=== PATIENT | male | born 1930 | race Caucasian/White ===

== ENCOUNTER → 2018-05-19 | Day surgery (SDC) | payer MEDICARE, OTHER ==
[~2018-05-19] VITALS: Ht 177.8 cm; Wt 105.0 kg
[2018-05-19] VITALS (9 sets, daily range): BP systolic 100–133; BP diastolic 59–75; PULSE 67–71; TEMP 97.8–98.4
[~2018-05-19] MED LIST: BYDUREON P2 MG/0.65; BYDUREON PEN2 MG SQ; CEPHALEXIN500 M1 PO; COUMADIN 2MG2 MG/TAB PO; COUMADIN 3MG3 MG/TAB PO; COUMADIN4 MG PO; CRESTOR20 MG PO; FLOMAX 0.40.4 MG/CAP PO; GLUCOPHAGE500 MG/TAB PO; GLUCOTROL XL10 MG PO; HCTZ 25MG TAB25 MG PO; ILOTYCIN5 MG/GM OP; INSPRA25 MG PO; JANUVIA 100MG100 MG PO; LANTUS100 U/ML SQ; LASIX 40MG TABL40 MG PO; LOPRESSOR 225 MG/TAB PO; LOTENSIN40 MG PO; OMEGA-3 1000 MG1 CAP PO; PACERONE200 MG PO; PRESERVISION1 SGL PO; STOOL SOFTENER100 M2 PO; VITAMINE200 PO; ZEBETA10 MG PO
[2018-05-19 08:38] LABS: INR 4.6 (0.8-3.0)
[2018-05-19 08:40] LABS: HEMOGLOBIN 11.9 g/dl (13.5-18.0); MEAN CELL VOLUME 92 fl (80.0-100.0); MEAN CORPUSCULAR HEMOGLOBIN 31 pg (27.0-31.0); MEAN CORPUSCULAR HGB CONC 33 g/dl (33.0-37.0); MEAN PLATELET VOLUME 10.9 fl (7.4-10.4); PLATELET COUNT 170 K/mm3 (130-400)
[2018-05-19 08:43] LABS: PROTHROMBIN TIME 52.5 SECONDS (9.7-12.8)
[2018-05-19 08:43] LABS: CREATININE, serum 1.97 mg/dL (0.66-1.25); POTASSIUM 5.1 mmol/L (3.4-5.0)
[2018-05-19 08:45] LABS: HEMATOCRIT 35.9 % (42.0-52.0)
== END ==
LOC: COL.CAR 07:45
PROVIDERS: Internal Medicine Cardiovascular Disease
DX: I48.1 Persistent atrial fibrillation (principal); I49.5 Sick sinus syndrome; Z79.01 Long term (current) use of anticoagulants; Z79.899 Other long term (current) drug therapy; I11.0 Hypertensive heart disease with heart failure; I50.9 Heart failure, unspecified; E11.9 Type 2 diabetes mellitus without complications; Z79.4 Long term (current) use of insulin; Z95.0 Presence of cardiac pacemaker
CPT/HCPCS: J2704; J7030